=== PATIENT | female | born 1960 | race Caucasian/White ===

== ENCOUNTER → 2016-05-06 | Outpatient (REF) | payer BC | END | disposition home or self-care (01) | LOC: M SFHCWAGY 16:00 | PROVIDERS: ATTEND Nurse Practitioner Women's Health | DX: Z12.4 Encounter for screening for malignant neoplasm of cervix (principal) ==

== ENCOUNTER → 2016-05-06 | Outpatient (CLI) | payer BC ==
--- NOTE | 2016-05-07 08:41 | REPMRS ---
Patient History The patient states she had a clinical breast exam in 04/2016. Patient is postmenopausal and is nulliparous. No known family history of cancer. Taking hormonal contraceptives for 34 years. Digital Woman Screen Mammo: May 06, 2016 - Exam #: [id number] Bilateral CC and MLO view(s) were taken. Technologist: Belinda Kapoor, Technologist Prior study comparison: March 21, 2015, digital woman screen mammo performed at [facility] to [facility]. February 08, 2014, digital woman screen mammo performed at [facility]. January 21, 2013, digital woman screen mammo performed at [facility] to [facility]. FINDINGS: There are scattered fibroglandular densities. There has been no change in the appearance of the mammogram from the prior studies. There is a mild amount of scattered fibroglandular density which is fairly symmetric. There is no interval development of dominant mass, architectural distortion, or clustered microcalcification suggestive of malignancy. ASSESSMENT: BI-RADS/ACR category 1 mammogram. Negative. Recommendation Routine screening mammogram in 1 year (for women over age 40). This mammogram was interpreted with the aid of an FDA-approved computer-aided dectection system. Electronically Signed By: Joseph Lerner MD 05/07/16 0806
== END | disposition home or self-care (01) ==
LOC: M WHC 15:41
PROVIDERS: ATTEND Nurse Practitioner Women's Health
DX: Z12.31 Encounter for screening mammogram for malignant neoplasm of breast (principal); Z78.0 Asymptomatic menopausal state; Z92.0 Personal history of contraception

== ENCOUNTER → 2016-06-04 | Outpatient (REF) | payer BC ==
[2016-06-04 13:10] LABS: FOLLICLE STIMULATING HORMONE 83.1 mIU/mL; LUTEINIZING HORMONE 39.9 mIU/mL
== END ==
LOC: M SFHCPLAZ 11:30
PROVIDERS: ATTEND Nurse Practitioner Women's Health
DX: N95.1 Menopausal and female climacteric states (principal)

== ENCOUNTER → 2016-12-30 | Outpatient (CLI) | payer BC ==
[2016-12-30 14:49] LABS: ANION GAP 7 MEQ/L (8-16); BLOOD UREA NITROGEN 24 MG/DL (7-18); CALCIUM LEVEL 9.9 MG/DL (8.5-10.1); CARBON DIOXIDE LEVEL 30 MEQ/L (21-32); CHLORIDE LEVEL 104 MEQ/L (98-107); CREATININE FOR GFR 0.65 MG/DL (0.55-1.02); GLOMERULAR FILTRATION RATE > 60.0 (>51); GLUCOSE, FASTING 95 MG/DL (70-105); POTASSIUM SERUM 3.7 MEQ/L (3.5-5.1); SODIUM LEVEL 141 MEQ/L (136-145)
== END ==
LOC: M LAB 13:05
PROVIDERS: ATTEND Physician Assistant
DX: M23.222 Derangement of posterior horn of medial meniscus due to old tear or injury, left knee (principal)

== ENCOUNTER → 2021-09-05 | Outpatient (CLI) | payer BC | LOC: M SOG 11:55 | PROVIDERS: ATTEND Physician Assistant | DX: M25.532 Pain in left wrist (principal) ==

== ENCOUNTER → 2021-10-08 | Outpatient (CLI) | payer BC | LOC: M SOG 08:08 | PROVIDERS: ATTEND Orthopaedic Surgery Hand Surgery | DX: M25.532 Pain in left wrist (principal) ==

== ENCOUNTER → 2022-02-12 | Outpatient (CLI) | payer BC | LOC: M WHC 14:03 | PROVIDERS: ATTEND Nurse Practitioner Family | DX: Z12.31 Encounter for screening mammogram for malignant neoplasm of breast (principal) ==

== ENCOUNTER → 2022-03-06 | Outpatient (CLI) | payer BC | LOC: M WHC 10:20 | PROVIDERS: ATTEND Nurse Practitioner Family | DX: Z12.31 Encounter for screening mammogram for malignant neoplasm of breast (principal); Z13.820 Encounter for screening for osteoporosis; M85.851 Other specified disorders of bone density and structure, right thigh | CPT/HCPCS: 77065; 77080; G0279 ==

== ENCOUNTER → 2023-03-25 | Outpatient (CLI) | payer BC | LOC: M WHC 15:02 | PROVIDERS: ATTEND Nurse Practitioner Family | DX: Z12.31 Encounter for screening mammogram for malignant neoplasm of breast (principal) ==

== ENCOUNTER → 2024-12-23 | Outpatient (CLI) | payer BC ==
[2024-12-23 17:13] LABS: BASO # 0.0 10^3/uL (0.0-0.2); BASO % 0.5 % (0.0-1.0); EOS # 0.1 10^3/uL (0.0-0.5); EOS % 1.3 % (0.0-3.0); LYMPH # 2.1 10^3/uL (1.5-5.0); LYMPH % 26.9 % (24.0-44.0); MONO # 0.5 10^3/uL (0.0-0.8); MONO % 6.5 % (2.0-8.0); NEUTROPHILS # 5.0 10^3/uL (1.5-8.5); NEUTROPHILS % 64.4 % (36.0-66.0); PLATELET COUNT, AUTOMATED 224 10^3/uL (150-450)
[2024-12-23 17:38] LABS: CREATININE, URINE 208.2 MG/DL
[2024-12-23 17:39] LABS: ALT/SGPT 31 U/L (7.0-40); AST/SGOT 23 U/L (<34); CALCIUM LEVEL 9.4 MG/DL (8.3-10.6); CARBON DIOXIDE LEVEL 30 MMOL/L (20-31); CHLORIDE LEVEL 104 MMOL/L (98-107); CREATININE FOR GFR 0.72 MG/DL (0.55-1.30); GLOMERULAR FILTRATION RATE > 90.0 (>45); POTASSIUM SERUM 3.4 MMOL/L (3.5-5.1); SODIUM LEVEL 141 MMOL/L (136-145)
[2024-12-23 18:04] LABS: MALB URINE SIEMENS 16.0 MG/L; MAU/CREAT RATIO 7.6 MCG/MG (0.0-30.0)
[2024-12-23 18:55] LABS: ESTIMATED AVERAGE GLUCOSE 137.0 MG/DL (60-110)
== END ==
LOC: M LAB 16:15
PROVIDERS: ATTEND Family Medicine
DX: G47.33 Obstructive sleep apnea (adult) (pediatric) (principal); I10 Essential (primary) hypertension; F33.8 Other recurrent depressive disorders